=== PATIENT | female | born 1990 ===

== ENCOUNTER → 2022-01-14 14:51 | Outpatient (CLI) | payer OTHER, SELFPAY | PROVIDERS: Referring Provider Internal Medicine; Visit Provider Internal Medicine | DX: Z23 Encounter for immunization (principal) | CPT/HCPCS: 90471; 90686 ==

== ENCOUNTER 2022-02-14 06:10 | Day surgery (SDC) | payer OTHER, SELFPAY ==
[2022-02-14] VITALS (7 sets, daily range): BP systolic 111–133; BP diastolic 65–91; PULSE 73–96; RESP 12–20; TEMP 36.1–37.1; O2SAT 97–100; BMI 41.8
--- NOTE | 2022-02-14 | PATH_ITS ---
[facility] Accession Number: [id number] . 01 Material submitted: . endometrium - ENDOMETRIAL CURETTAGE . 01 Diagnosis: Endometrium, Curettage: Secretory phase endometrium with breakdown. Negative for atypical hyperplasia and malignancy. [facility] 02/18/2022 1106 Local . 01 Electronically signed: . Ibeth Hargrove MD, Pathologist NPI- [id number] . 01 Gross description: . ENDOMETRIAL CURETTAGE: Received in formalin are minute fragments of mucoid and hemorrhagic material measuring 1.2 x 1.2 x 0.4 cm in aggregate. Submitted in toto in 1 cassette. /[facility]IDA 02/16/2022 0029 Local . 01 Pathologist provided ICD-10: N93.9 . 01 CPT . 837005 Specimen Comment: A courtesy copy of this report has been sent to [phone] Performed at: 01 [facility] [address] [place] [address], [place], [place] [id number] MD Jaskaran Erwin MD Phone: [phone]
[2022-02-14 07:02] LABS: COVID19 -Nasal RAPID Negative (Negative)
[2022-02-14] MEDS: LACTATED RINGERS 1,000 ML 100 ML IV (07:10)
--- NOTE | 2022-02-14 08:03 | PM.HP.1 ---
History of Present Illness History of Present Illness Date Patient Seen: 02/14/22 Time Patient Seen: 08:04 Chief complaint: HYSTEROSCOPY D&C Narrative: Patient is a 31-year-old 3 para 2 who presents for a D&C hysteroscopy due to abnormal uterine bleeding and a symmetric endometrial hyperplasia. Patient History Medical History (Updated 02/14/22 @ 06:49 by Harris Ruiz RN) Fibromyalgia Surgical History (Updated 02/14/22 @ 06:50 by Harris Ruiz RN) History of gynecologic surgery Family & Social History Tobacco & Substance use: Smoking Status Never smoker alcohol intake current alcohol intake frequency a few times a month Substance Use Type does not use Meds Home Medications and Allergies Home Medications Medication Instructions Recorded Confirmed Type No Known Home Medications 02/14/22 02/14/22 History Allergies Allergy/AdvReac Type Severity Reaction Status Date / Time No Known Drug Allergies Allergy Verified 02/14/22 06:47 Exam Vital Signs (past 8 hours): - 02/14/22 06:57 Temperature 98.7 F Pulse Rate 96 H Respiratory Rate 12 Blood Pressure 133/91 H Pulse Oximetry 100 Oxygen Delivery Method Room Air Oxygen Delivery Method Room Air Narrative Exam Narrative: HEENT: No thyromegaly, no anterior cervical or supraclavicular lymphadenopathy. Lungs:Clear to auscultation bilaterally, no wheezes. Cardiovascular: Regular rate and rhythm, no murmurs, rubs, or gallops. Abdomen: No scars. No hepatosplenomegaly. No masses palpable. External genitalia: Normal Vagina: Normal Cervix: Normal Bimanual exam: 8 Week size uterus. Mobile. No adnexal masses or tenderness. Extremities: No edema Objective Labs Labs: Laboratory Results - last 24 hr 02/14/22 06:43 SARS-CoV-2 (PCR) Negative Assessment & Plan Assessment & Plan narrative: Assessment: 31-year-old 3 para 2 with abnormal uterine bleeding an asymmetric endometrial hyperplasia Plan: D&C hysteroscopy The risks, benefits, and alternatives to the procedure were explained to the patient. The risks including bleeding, infection, and uterine perforation. She understands these risks and agrees to proceed. A full par Q was held and consent form was signed. COVID-19 COVID-19 status: Negative Result date/Date tested (Pos, Neg/Pending): 02/14/22 Time Spent With Patient Time with patient: less than 30 minutes Critical Care time: I spent a total of [] minutes of critical care time on this patient's care today; this time is exclusive of procedural time.
--- NOTE | 2022-02-14 08:06 | PM.PREOP ---
Pre-operative Note COVID-19 COVID-19 status: Negative Result date/Date tested (Pos, Neg/Pending): 02/14/22 Criteria for continued procedure: Non-surgical alternatives not available or appropriate per current SOC Interval Note History & Physical reviewed/Exam performed by Physician: Yes Changes to H&P: No H&P completed within 30 days and has changed as indicated here:: 02/14/22
--- NOTE | 2022-02-14 08:34 | SUR.OPER ---
Lithotomy on padded OR bed, head on pillow, arms secured on padded arm boards with additional pillows at <90 degrees abduction. Legs secured in padded yellow fins stirrups.
--- NOTE | 2022-02-14 09:05 | PM.GYNOP.1 ---
Operative Date/Time/Diagnoses Date of procedure: 02/14/22 Time of procedure: 09:06 Pre-op diagnosis: Abnormal uterine bleeding Asymmetric endometrial hyperplasia Post-op diagnosis: same Procedure & Clinicians Procedure: Procedures Operation Date: 02/14/22 07:45 Actual Procedure Side Surgeon p Hysteroscopy D&C Richa Edgar MD Indications: Abnormal uterine bleeding Asymmetric endometrial hyperplasia Surgeon: Richa Edgar Anesthesia Type: General (LMA) Operative Notes Findings: 8 week size anteverted uterus Both fallopian tube ostia observed Patchy thickening throughout the endometrial cavity Closure Type: not applicable Specimen(s): endometrial curettings Estimated blood loss (mL): 10 Blood products transfused: none Procedure in detail: After informed consent was obtained, the patient was taken to the operating room where she was placed in the dorsal supine position. After adequate LMA general anesthesia was achieved, she was placed in the dorsal lithotomy position, and prepped and draped in the usual sterile fashion. A time-out was performed. A bivalve speculum was placed into the vagina and the anterior lip of the cervix was grasped with a single-tooth tenaculum. The cervical os was sequentially dilated until the hysteroscope could pass easily into the endometrial cavity. Initial inspection with the hysteroscope revealed both fallopian tube ostia. There were no fibroids or polyps visible. There was patchy thickening throughout the endometrium. The hysteroscope was removed. Sharp curettage was performed yielding a large amount of endometrial curettings. The instruments were removed from the uterus. The single-tooth tenaculum was removed from the anterior lip of the cervix. The bivalve speculum was removed from the vagina. Sponge, lap, and instrument counts were correct x2. The patient tolerated the procedure well, and was taken to PACU in stable condition. Complications: none Post-operative Condition: stable Plan for aftercare: Home after recovery
[2022-02-14] MEDS: KETOROLAC 30 MG/ML VIAL IV (09:07)
== END 2022-02-14 09:31 | disposition home or self-care (01) ==
PROVIDERS: PCP Family Medicine; Referring Provider Obstetrics & Gynecology; Visit Provider Obstetrics & Gynecology
PROC: 0UDB8ZZ Extraction of Endometrium, Via Natural or Artificial Opening Endoscopic (ICD-10-PCS; CPT 58558; principal; 2022-02-14 07:45)
DX: N93.9 Abnormal uterine and vaginal bleeding, unspecified (principal); Z20.822 Contact with and (suspected) exposure to COVID-19; N85.00 Endometrial hyperplasia, unspecified
CPT/HCPCS: 58558; 81025; 87635; C9803; J1100; J1885; J2405; J2704; J3010

== ENCOUNTER 2022-09-23 08:35 | Emergency (ER) | payer OTHER, SELFPAY ==
[2022-09-23] VITALS (10 sets, daily range): BP systolic 118–145; BP diastolic 60–84; PULSE 68–119; RESP 15–22; TEMP 36.7; O2SAT 97–99; BMI 42.5
--- NOTE | 2022-09-23 08:38 | DI.RAD.S_ITS ---
PROCEDURE: XR CHEST 1V INDICATIONS: chest pain TECHNIQUE: One view of the chest was acquired. COMPARISON: None. FINDINGS: Surgical changes and devices: None. Lungs and pleura: Lungs are clear. No pleural effusions or pneumothorax. Mediastinum: Mediastinal contours appear normal. Heart size is normal. Bones and chest wall: No suspicious bony lesions. Overlying soft tissues appear unremarkable. IMPRESSION: No acute pulmonary process. Dictated by: Melissa Thomas M.D. on 09/23/2022 at 9:11 Approved by: Melissa Thomas M.D. on 09/23/2022 at 9:11
--- NOTE | 2022-09-23 08:48 | ED_ITS ---
HPI - Chest Pain General Chief Complaint: Chest Pain Stated Complaint: hear heart in ear/chest discomfort/dizzy Time Seen by Provider: 09/23/22 08:48 Source: patient, RN notes reviewed and old records reviewed Mode of arrival: Ambulatory Limitations: no limitations History of Present Illness HPI narrative: This is a 32-year-old female with history of intermittent nicotine use, patient states last night she started hearing wash in her left ear with her heart rate she is felt a dull squeeze in her chest which has been constant but waxing and waning in intensity. Patient states nothing seems to make it worse something nothing seems to make it better she denies any radiation. Denies any similar episodes in the past. She has felt a little lightheaded but no syncope. She felt a little nauseated last night, she did not have any vomiting. She did have some diarrhea, no black or bright red blood in her stool. No dysuria urgency or frequency. No new swelling in extremities. No fevers chills cold cough or congestion. Denies any past medical issues. No prior surgeries. No known drug allergies. She uses nicotine couple days ago does use intermittently. She would 1 beer last night she states she typically has a drink once monthly. No marijuana recreational drugs. No long distance travel, no known cardiac, pulmonary or embolic history. She states grandparents from congestive heart failure, dad has hypertension diabetes. Siblings do not have any known medical issues. She denies any long distance travel or other high- risk embolic history. Patient does note that she has been told her heart rate runs a little fast in the past when noted she is got a heart rate around 105 at times in the room. Related Data Home Medications Medication Instructions Recorded Confirmed No Known Home Medications 02/14/22 02/14/22 Allergies Allergy/AdvReac Type Severity Reaction Status Date / Time No Known Drug Allergies Allergy Verified 09/23/22 08:48 Review of Systems Review of Systems ROS Unobtainable: All systems reviewed & are unremarkable except as noted in HPI and below Patient History Medical History Fibromyalgia Surgical History History of gynecologic surgery Social History Smoking Status: Never smoker alcohol intake: current Smoking Status: Never smoker alcohol intake frequency: a few times a month Substance Use Type: does not use Exam Narrative Exam Narrative: GENERAL: Alert and oriented x three, female in mild distress. HEENT: Head normocephalic, atraumatic, EOMI, pupils reactive, face symmetric, moist mucous membranes NECK: Supple, full range of motion CARDIOVASCULAR: Regular rate and rhythm without murmurs, rubs or gallops. No JVD. No swelling bilateral lower extremities. RESPIRATORY: Breath sounds equal bilaterally, no wheezes rales or rhonchi. No tachypnea or accessory muscle use. Speaks in full sentences. ABDOMEN: Soft, nontender. Normoactive bowel sounds all 4 quadrants. No guarding or rebound, rigidity, no mass : No CVA tenderness EXTREMITIES: Normal range of motion, no clubbing or edema. 2+ pulses bilateral upper extremities. Neurovascularly intact NEUROLOGICAL: Cranial nerves II through XII grossly intact. Moving all extremit ies SKIN: Warm, dry, no petechiae, no rashes or lesions. Initial Vital Signs Initial Vital Signs: Vital Signs Pulse Rate 119 H 09/23/22 08:40 Blood Pressure 145/84 H 09/23/22 08:40 Pulse Oximetry 98 09/23/22 08:40 Scores PERC Score Age greater than or equal to 50 years: No Heart rate greater than or equal to 100 bpm: Yes Room Air O2 Sat less than 95%: No Unilateral leg swelling: No Recent trauma or surgery: No Hemoptysis: No Prior PE or DVT: No Hormone Use: No Total PERC Score: 1 Course Orders Ordered: ED Orders 09/23/22 11:10 Trop I [Troponin I] Stat Discontinued Medications Sodium Chloride (Normal Saline 0.9%) 1,000 mls @ 1,000 mls/hr IV BOLUS ONE Stop: 09/23/22 10:01 Last Infusion: 09/23/22 10:23 Dose: 0 mls/hr Documented By: Admin: 09/23/22 09:22 Dose: 1,000 mls/hr Documented By: CTS Vital Signs Vital signs: Vital Signs - 8 hr 09/23/22 11:00 09/23/22 11:30 09/23/22 11:30 Pulse Rate 86 84 Respiratory Rate 19 15 Blood Pressure 137/80 Pulse Oximetry 99 98 MDM - Chest Pain Lab Data 09/23/22 09:00 09/23/22 09:00 Labs: Lab Results 09/23/22 09/23/22 09/23/22 Range/Units 09:00 09:00 09:00 WBC 8.0 (4.5-11.0) X10^3/uL RBC 4.64 (4.0-5.2) X10^6/uL Hgb 13.1 (12.0-16.0) g/dL Hct 39.0 (36-46) % MCV 83.9 (80-100) fL MCH 28.1 (26-34) PG MCHC 33.5 (30-36) % RDW 14.2 (11.6-14.8) % Plt Count 212 (150-400) X10^3/uL Neut % (Auto) 59.7 (50-75) % Lymph % (Auto) 32.4 (25-40) % [place] % (Auto) 5.2 (3-14) % Eos % (Auto) 1.7 L (2-4) % Baso % (Auto) 1.0 (0-2) % Neut # (Auto) 4800 (0429-7301) /uL Lymph # (Auto) 2600 (9490-5304) /uL [place] # (Auto) 400 (0-900) /uL Eos # (Auto) 100 (0-450) /uL Baso # (Auto) 100 (0-100) /uL PT 12.5 (10.1-12.7) SECONDS INR 1.1 (0.9-1.3) APTT 33 (26-36) SECONDS D-Dimer (<500) ng/ml Sodium 138 (137-145) mmol/L Potassium 4.1 (3.4-5.1) mmol/L Chloride 104 (98-107) mmol/L Carbon Dioxide 26 (22-32) mmol/L BUN 12 (7-17) mg/dL Creatinine 0.73 (0.52-1.04) mg/dL Estimated GFR > 60 (>60) mL/min BUN/Creatinine Ratio 16.4 (6-22) Glucose 116 H (70-100) mg/dL Calcium 9.0 (8.4-10.2) mg/dL Magnesium 2.0 (1.6-2.3) mg/dL Total Bilirubin 0.8 (0.2-1.3) mg/dL AST 25 (14-36) IU/L ALT 29 (<35) IU/L Alkaline Phosphatase 66 (38-126) U/L Total Creatine Kinase 98 (30-135) U/L CK-MB (CK-2) TNP CK-MB (CK-2) Rel Index TNP Troponin I < 0.012 (0.01-0.034) ng/mL NT-Pro-B Natriuret Pep (<125) pg/mL Total Protein 7.4 (6.3-8.2) g/dL Albumin 4.2 (3.5-5.0) g/dL Globulin 3.2 (1.7-4.1) g/dL Albumin/Globulin Ratio 1.3 (1.0-2.8) Lipase 41 (23-300) U/L 09/23/22 09/23/22 09/23/22 Range/Units 09:00 09:00 11:10 WBC (4.5-11.0) X10^3/uL RBC (4.0-5.2) X10^6/uL Hgb (12.0-16.0) g/dL Hct (36-46) % MCV (80-100) fL MCH (26-34) PG MCHC (30-36) % RDW (11.6-14.8) % Plt Count (150-400) X10^3/uL Neut % (Auto) (50-75) % Lymph % (Auto) (25-40) % [place] % (Auto) (3-14) % Eos % (Auto) (2-4) % Baso % (Auto) (0-2) % Neut # (Auto) (6474-3872) /uL Lymph # (Auto) (0852-6324) /uL [place] # (Auto) (0-900) /uL Eos # (Auto) (0-450) /uL Baso # (Auto) (0-100) /uL PT (10.1-12.7) SECONDS INR (0.9-1.3) APTT (26-36) SECONDS D-Dimer 443 (<500) ng/ml Sodium (137-145) mmol/L Potassium (3.4-5.1) mmol/L Chloride (98-107) mmol/L Carbon Dioxide (22-32) mmol/L BUN (7-17) mg/dL Creatinine (0.52-1.04) mg/dL Estimated GFR (>60) mL/min BUN/Creatinine Ratio (6-22) Glucose (70-100) mg/dL Calcium (8.4-10.2) mg/dL Magnesium (1.6-2.3) mg/dL Total Bilirubin (0.2-1.3) mg/dL AST (14-36) IU/L ALT (<35) IU/L Alkaline Phosphatase (38-126) U/L Total Creatine Kinase (30-135) U/L CK-MB (CK-2) CK-MB (CK-2) Rel Index Troponin I < 0.012 (0.01-0.034) ng/mL NT-Pro-B Natriuret Pep 36 (<125) pg/mL Total Protein (6.3-8.2) g/dL Albumin (3.5-5.0) g/dL Globulin (1.7-4.1) g/dL Albumin/Globulin Ratio (1.0-2.8) Lipase (23-300) U/L Imaging Data Chest x-ray: Radiologist's Impression: Close Chest X-Ray (Signed) Melissa Thomas - 09/23/22 Outside DI 01/11/22 Launch?[place] [address] XRay Report Signed Patient: Fara Perdue MR#: [id number] : 1990 Acct:[id number] Age/Sex: 32 / F Date of Service: 09/23/22 Loc: ED Accession Number: [id number] ?? Procedure: XR chest 1V Ordering Provider: Marsha Jiménez D.O. PROCEDURE:? XR CHEST 1V ? INDICATIONS:? chest pain ? TECHNIQUE:? One view of the chest was acquired.? ? COMPARISON:? None. ? FINDINGS:? ? Surgical changes and devices:? None.? ? Lungs and pleura:? Lungs are clear.? No pleural effusions or pneumothorax.? ? Mediastinum:? Mediastinal contours appear normal.? Heart size is normal.? ? Bones and chest wall:? No suspicious bony lesions.? Overlying soft tissues appear unremarkable.? ? IMPRESSION:? No acute pulmonary process. ? ? Dictated by: Melissa Thomas M.D. on 09/23/2022 at 9:11 ? ? Approved by: Melissa Thomas M.D. on 09/23/2022 at 9:11?? ECG Data Attestation: I personally reviewed and interpreted this ECG as follows: Prior ECG tracings: not available for review Interpretation: Sinus s tachycardia rate of 105 FL 116 QRS is 72 and QTC 433. No acute ST elevation or depression is appreciated. Patient has Q3 T3 not appreciated another leads Sinus rhythm rate of 75 FL 120 QRS 80 QTC 426. No acute changes from prior today. No dynamic changes MDM Narrative Medical decision making narrative: 32-year-old female cardiac workup so far is negative with troponin, BNP, dimer is negative, renal function, electrolytes CBC do not show acute changes. Chest x-ray shows no acute change, EKG does not show clear changes other than sinus tachycardia. Patient's heart rate was improving even before fluids after a L she is running in the 70s. Discussed with patient plan for repeat troponin EKG at the 2 hour camilla if negative unlikely for cardiac cause we did discuss the whooshing in her ear there is no pain radiating up to her neck or head. We discussed further imaging with angiography despite D-dimer being negative discussed that it is not a perfect test. Patient at this time elects to hold off after discussing risks versus benefit. Repeat troponin and EKG are negative which is reassuring overall patient's chest pain had never resolved in 24 hours. Discussed patient plan for follow-up. Eb villalobos notes she is supposed to fly to [facility] on Monday. Discussed recommend follow-up for then particularly if symptoms are persisting. Discharge Plan Departure Patient Disposition: Home Clinical Impression: Atypical chest pain Instructions: DI for Atypical Chest Pain Activity Restrictions/Additional Instructions: Please follow-up for recheck if your symptoms are persisting. Your workup today does not show any clear changes. Discussed with your physician about whether or not to have additional workup. Please return for new or worsening symptoms increasing chest pain, shortness of breath, lightheadedness or passing out, severe headaches or neck pain, diaphoresis or sweatiness, new swelling in your extremities or other new or concerning changes. Prescriptions: No Action No Known Home Medications Referrals: Stefany Ro MD [Primary Care Provider] - Stand Alone Forms: Patient Portal/API
[2022-09-23 09:13] LABS: Add Manual Diff / Slide Review NO; Basophils Absolute Auto 100 /uL (0-100); Eosinophils Absolute Auto 100 /uL (0-450); Eosinophils Percent Auto 1.7 % (2-4); Hemoglobin 13.1 g/dL (12.0-16.0); Lymphocytes Absolute Auto 2600 /uL (1100-4500); Lymphocytes Percent Auto 32.4 % (25-40); Mean Corpuscular HGB Conc 33.5 % (30-36); Mean Corpuscular Hemoglobin 28.1 PG (26-34); Mean Corpuscular Volume 83.9 fL (80-100); Monocytes Absolute Auto 400 /uL (0-900); Monocytes Percent Auto 5.2 % (3-14); Neutrophils Absolute Auto 4800 /uL (1500-7000); Neutrophils Percent Auto 59.7 % (50-75); Platelet Count 212 X10^3/uL (150-400); Red Blood Cell Count 4.64 X10^6/uL (4.0-5.2); Red Cell Distribution Width 14.2 % (11.6-14.8)
[2022-09-23] MEDS: SODIUM CHLORIDE 0.9% 1,000 ML 1000 ML IV (09:22)
[2022-09-23 09:26] LABS: Alanine Aminotransferase 29 IU/L (<35); Albumin 4.2 g/dL (3.5-5.0); Albumin Globulin Ratio 1.3 (1.0-2.8); Alkaline Phosphatase 66 U/L (38-126); Aspartate Aminotransferase 25 IU/L (14-36); BUN Creatinine Ratio 16.4 (6-22); Bilirubin Total 0.8 mg/dL (0.2-1.3); Blood Urea Nitrogen 12 mg/dL (7-17); Carbon Dioxide 26 mmol/L (22-32); Chloride 104 mmol/L (98-107); Creatine Kinase 98 U/L (30-135); Estimated Glomerular Filt Rate > 60 mL/min (>60); Globulin 3.2 g/dL (1.7-4.1); Glucose 116 mg/dL (70-100); HEMOLYSIS < 15 (0-50); Lipase 41 U/L (23-300); Potassium 4.1 mmol/L (3.4-5.1); Sodium 138 mmol/L (137-145); Total Protein 7.4 g/dL (6.3-8.2)
[2022-09-23 09:31] LABS: INR 1.1 (0.9-1.3); Prothrombin Time 12.5 SECONDS (10.1-12.7)
[2022-09-23 09:33] LABS: PTT Partial Thromboplastin Tim 33 SECONDS (26-36)
[2022-09-23 09:35] LABS: NT-proBNP (BNP-Adult 18+) 36 pg/mL (<125)
[2022-09-23 09:37] LABS: Troponin I < 0.012 ng/mL (0.01-0.034)
[2022-09-23 09:43] LABS: D Dimer 443 ng/ml (<500)
[2022-09-23 11:42] LABS: Troponin I < 0.012 ng/mL (0.01-0.034)
== END 2022-09-23 11:58 | disposition home or self-care (01) ==
PROVIDERS: Emergency Provider Emergency Medicine; PCP Family Medicine
DX: R07.89 Other chest pain (principal); R11.0 Nausea
CPT/HCPCS: 36415; 71045; 80053; 82550; 83690; 83735; 83880; 84484; 85025; 85379; 85610; 85730; 93005; 96360; 99284

== ENCOUNTER → 2023-01-13 08:42 | Outpatient (CLI) | payer OTHER, SELFPAY | PROVIDERS: PCP Family Medicine; Referring Provider Family Medicine; Visit Provider Family Medicine | DX: Z23 Encounter for immunization (principal) | CPT/HCPCS: 90471; 90686 ==

== ENCOUNTER 2023-02-23 10:43 | Emergency (ER) | payer OTHER, SELFPAY ==
[2023-02-23] VITALS (10 sets, daily range): BP systolic 116–138; BP diastolic 66–80; PULSE 86–108; RESP 18–23; TEMP 36.9; O2SAT 96–99; BMI 40.7
--- NOTE | 2023-02-23 10:46 | DI.RAD.S_ITS ---
PROCEDURE: XR CHEST 1V INDICATIONS: chest pain TECHNIQUE: One view of the chest was acquired. COMPARISON: [facility], CR, XR CHEST 1V, 09/23/2022, 8:46. FINDINGS: Surgical changes and devices: None. Lungs and pleura: Lungs are clear. No pleural effusions or pneumothorax. Mediastinum: Mediastinal contours appear normal. Heart size is normal. Bones and chest wall: No suspicious bony lesions. Overlying soft tissues appear unremarkable. IMPRESSION: No acute cardiopulmonary pathology. Dictated by: Lorne Su M.D. on 02/23/2023 at 11:45 Approved by: Lorne Su M.D. on 02/23/2023 at 11:46
--- NOTE | 2023-02-23 10:55 | ED.CHESTPAIN ---
HPI - Chest Pain General Chief Complaint: Chest Pain Stated Complaint: chest pain swelling lower ext Time Seen by Provider: 02/23/23 10:54 Source: patient, RN notes reviewed and old records reviewed Mode of arrival: Ambulatory Limitations: no limitations History of Present Illness HPI narrative: 32-year-old female with history of colon polyp, presents with complaint of some substernal chest pressure for the past 3 weeks she states been fairly constant but occasionally will have a shooting pain. She states it has been substernal without radiation. She denies any palpitations but states her Apple watch was reading is fast. Patient states she is felt a little short of breath but states she is been very congested upper respiratory ruiz. She is had a recent upper respiratory infection has been about a week she states she is improving. She denies any nausea or vomiting. No diaphoresis. She states she noticed that her shoes seemed a little bit tight today when she went to put them on and she was concerned about some edema. She is not had this kind of problem in the past with the edema. She denies abdominal back or flank pain. No passing out. No issues such as diarrhea or constipation with normal bowel movements. No dysuria urgency or frequency. States has not had similar symptoms in the past. She does have a visit for chest pain tachycardia back in September of 2022. Patient does note she had a colonoscopy on February 01 secondary to family history her mom had colon cancer at age 30 as well as an uncle. They found a polyp which was removed but no other complications. She states no other medical issues she is not on estrogen or any daily medications. No prior surgeries. No known drug allergies. Remote history of tobacco use. Alcohol once monthly, no recreational drugs or illicit. She follows with primary care at the [facility]. Related Data Home Medications Medication Instructions Recorded Confirmed No Known Home Medications 02/14/22 02/14/22 Allergies Allergy/AdvReac Type Severity Reaction Status Date / Time No Known Drug Allergies Allergy Verified 09/23/22 08:48 Review of Systems Review of Systems ROS Unobtainable: All systems reviewed & are unremarkable except as noted in HPI and below Patient History Medical History Fibromyalgia Surgical History History of gynecologic surgery Social History Smoking Status: Never smoker alcohol intake: current Smoking Status: Never smoker alcohol intake frequency: a few times a month Substance Use Type: does not use Exam Narrative Exam Narrative: GENERAL: Alert and oriented x three, well-appearing female in mild distress. BMI of 40. HEENT: Head normocephalic, atraumatic, EOMI, pupils reactive, patient does have nasal congestion. Face symmetric, moist mucous membranes NECK: Supple, full range of motion CARDIOVASCULAR: Mild tachycardia but regular rate and rhythm without murmurs, rubs or gallops. No JVD. No edema appreciated bilateral lower extremities. RESPIRATORY: Breath sounds equal bilaterally, no wheezes rales or rhonchi. No tachypnea, no accessory muscle use. ABDOMEN: Soft, nontender. Normoactive bowel sounds all 4 quadrants. No guarding or rebound, rigidity, no mass : No CVA tenderness EXTREMITIES: Normal range of motion, no clubbing or edema. Neurovascularly intact NEUROLOGICAL: Cranial nerves II through XII grossly intact. Moving all extremities SKIN: Warm, dry, no petechiae, no rashes or lesions. Initial Vital Signs Initial Vital Signs: Vital Signs Pulse Rate 108 H 02/23/23 10:51 Respiratory Rate 19 02/23/23 10:51 Pulse Oximetry 97 02/23/23 10:51 Scores HEART Score Heart Score history: Slightly Suspicious Heart Score EKG: Normal Heart Score Age: < 45 years old Heart Score risk factors: No known risk factors PERC Score Age greater than or equal to 50 years: No Heart rate greater than or equal to 100 bpm: Yes Room Air O2 Sat less than 95%: No Unilateral leg swelling: No Recent trauma or surgery: No Hemoptysis: No Prior PE or DVT: No Hormone Use: No Total PERC Score: 1 Course Orders Ordered: ED Orders 02/23/23 10:46 XR chest 1V Stat 02/23/23 10:53 EKG-12 Lead Stat 02/23/23 10:59 Complete Blood Count AUTO DIFF Stat Comprehensive Metabolic Panel Stat D Dimer Stat Lipase Stat Magnesium Stat NT-proBNP (BNP-Adult 18+) Stat PTT Partial Thromboplastin Blayne Stat Test Serum,Qual Stat Prothrombin Time INR Stat Troponin & CK Cardiac Panel Stat 02/23/23 11:20 Covid-19 + FLU A/B + RSV - PCR Stat Discontinued Medications Aspirin (Aspirin 81 Mg Chew Tab) 324 mg PO NOW ONE Stop: 02/23/23 10:47 Last Admin: 02/23/23 11:27 Dose: Not Given Documented By: NORMA Sodium Chloride (Normal Saline 0.9%) 1,000 mls @ 1,000 mls/hr IV BOLUS ONE Stop: 02/23/23 12:06 Last Infusion: 02/23/23 12:13 Dose: Infused Documented By: Admin: 02/23/23 11:15 Dose: 1,000 mls/hr Documented By: GINGER Vital Signs Vital signs: Vital Signs - 8 hr 02/23/23 10:51 02/23/23 10:56 02/23/23 11:00 Temperature 98.5 F Pulse Rate 108 H 104 H Respiratory Rate 19 18 Blood Pressure 138/80 132/79 Pulse Oximetry 97 98 Oxygen Delivery Method Room Air 02/23/23 11:00 02/23/23 11:30 02/23/23 11:30 Temperature Pulse Rate 103 H 95 H Respiratory Rate 20 23 Blood Pressure 125/66 Pulse Oximetry 97 96 Oxygen Delivery Method 02/23/23 12:00 02/23/23 12:00 02/23/23 12:30 Temperature Pulse Rate 91 H 87 Respiratory Rate 18 22 Blood Pressure 126/75 Pulse Oximetry 99 98 Oxygen Delivery Method 02/23/23 13:00 02/23/23 13:30 02/23/23 13:49 Temperature Pulse Rate 87 86 Respiratory Rate 18 20 Blood Pressure 120/72 Pulse Oximetry 96 98 Oxygen Delivery Method Room Air 02/23/23 13:49 02/23/23 14:04 Temperature Pulse Rate 99 H 95 H Respiratory Rate 18 20 Blood Pressure 116/66 Pulse Oximetry 99 98 Oxygen Delivery Method Room Air MDM - Chest Pain Lab Data 02/23/23 10:59 02/23/23 10:59 Labs: Lab Results 02/23/23 02/23/23 Range/Units 10:59 11:20 WBC 11.3 H (4.5-11.0) X10^3/uL RBC 4.69 (4.0-5.2) X10^6/uL Hgb 12.9 (12.0-16.0) g/dL Hct 38.6 (36-46) % MCV 82.4 (80-100) fL MCH 27.4 (26-34) PG MCHC 33.3 (30-36) % RDW 14.1 (11.6-14.8) % Plt Count 213 (150-400) X10^3/uL Neut % (Auto) 63.0 (50-75) % Lymph % (Auto) 29.4 (25-40) % [place] % (Auto) 5.5 (3-14) % Eos % (Auto) 1.4 L (2-4) % Baso % (Auto) 0.7 (0-2) % Neut # (Auto) 7100 H (5156-3004) /uL Lymph # (Auto) 3300 (6792-6335) /uL [place] # (Auto) 600 (0-900) /uL Eos # (Auto) 200 (0-450) /uL Baso # (Auto) 100 (0-100) /uL PT 12.4 (9.4-12.5) SECONDS INR 1.1 (0.9-1.3) APTT 32 (25.1-36.5) SECONDS D-Dimer 423 (<500) ng/ml Sodium 137 (137-145) mmol/L Potassium 4.0 (3.4-5.1) mmol/L Chloride 105 (98-107) mmol/L Carbon Dioxide 26 (22-32) mmol/L BUN 10 (7-17) mg/dL Creatinine 0.64 (0.52-1.04) mg/dL Estimated GFR > 60 (>60) mL/min BUN/Creatinine Ratio 15.6 (6-22) Glucose 114 H (70-100) mg/dL Calcium 9.5 (8.4-10.2) mg/dL Magnesium 2.0 (1.6-2.3) mg/dL Total Bilirubin 0.9 (0.2-1.3) mg/dL AST 24 (14-36) IU/L ALT 27 (<35) IU/L Alkaline Phosphatase 63 (38-126) U/L Total Creatine Kinase 82 (30-135) U/L Troponin I < 0.012 (0.01-0.034) ng/mL NT-Pro-B Natriuret Pep 58 (<125) pg/mL Total Protein 7.8 (6.3-8.2) g/dL Albumin 4.4 (3.5-5.0) g/dL Globulin 3.4 (1.7-4.1) g/dL Albumin/Globulin Ratio 1.3 (1.0-2.8) Lipase 54 (23-300) U/L Serum , Qual Negative (Negative) SARS-CoV-2 (PCR) Negative (Negative) Influenza A (RT-PCR) Flu a negative (NEGATIVE) Influenza B (RT-PCR) Flu b negative (NEGATIVE) RSV (PCR) Negative (Negative) Imaging Data Chest x-ray: Radiologist's Impression: [address] [address] XRay Report Signed Patient: Fara Perdue MR#: [id number] : 1990 Acct:[id number] Age/Sex: 32 / F Date of Service: 02/23/23 Loc: ED Accession Number: [id number] Procedure: XR chest 1V Ordering Provider: Marsha Jiménez D.O. PROCEDURE: XR CHEST 1V INDICATIONS: chest pain TECHNIQUE: One view of the chest was acquired. COMPARISON: [facility], , XR CHEST 1V, 09/23/2022, 8:46. FINDINGS: Surgical changes and devices: None. Lungs and pleura: Lungs are clear. No pleural effusions or pneumothorax. Mediastinum: Mediastinal contours appear normal. Heart size is normal. Bones and chest wall: No suspicious bony lesions. Overlying soft tissues appear unremarkable. IMPRESSION: No acute cardiopulmonary pathology. Dictated by: Lorne Su M.D. on 02/23/2023 at 11:45 Approved by: Lorne Su M.D. on 02/23/2023 at 11:46 ECG Data Attestation: I personally reviewed and interpreted this ECG as follows: Interpretation: Sinus tachycardia rate of 106 ID 118 QRS is 74 QTC 446. Patient has prior from 09/23/[address] elevation depression. Some nonspecific change. MDM Narrative Medical decision making narrative: 32-year-old female with history of colon polyp with no reported medical issues presents with complaint of some mild chest pressure noticed some edema in her lower extremities and then her heart rate has been elevated. She states her Apple watch his right up to 120 resting intermittently. She states she has had a recent upper respiratory infection she is on the tail end of this she is still congested. She was here once before for similar symptoms without URI in September of 2022. No reported cardiac history, no estrogen use or high-risk factors for pulmonary emboli. Patient's exam overall is reassuring no obvious signs of fluid overload, she is slightly tachycardic on examination but in no respiratory distress. Plan for labs CBC, CMP, troponin, dimer secondary to tachycardia, , she would mild leukocytosis at 11.3 normal hemoglobin, platelets, coags negative D-dimer is negative, glucose 114 otherwise negative renal function electrolytes LFTs, troponin and BNP with a negative . EKG shows no acute change today. She does have sinus tachycardia has not on prior visit as well. No significant dynamic changes. Chest x-ray shows no acute change. COVID/influenza/RSV swab is negative. Patient was given 1L of fluid on recheck tachycardia is resolved. Patient well-appearing with negative workup overall. Patient prior does have a recent upper respiratory infection no signs of myocarditis, acute coronary syndrome, pulmonary emboli, infection felt appropriate for discharge home. Discharge Plan Departure Patient Disposition: Home Clinical Impression: Chest pain Instructions: DI for Chest Pain Activity Restrictions/Additional Instructions: Follow-up with your physician for recheck. If you have persistent symptoms they may perform additional workup. Please return for new or worsening symptoms increasing or new chest pain, shortness of breath, lightheadedness, passing out, diaphoresis or sweatiness, increasing swelling of your extremities, persistent vomiting or other new or concerning changes. Prescriptions: No Action No Known Home Medications Referrals: ProviderAlberto [Primary Care Provider] - Stand Alone Forms: Patient Portal/API
[2023-02-23 11:10] LABS: Add Manual Diff / Slide Review NO; Basophils Absolute Auto 100 /uL (0-100); Basophils Percent Auto 0.7 % (0-2); Eosinophils Absolute Auto 200 /uL (0-450); Eosinophils Percent Auto 1.4 % (2-4); Hematocrit 38.6 % (36-46); Hemoglobin 12.9 g/dL (12.0-16.0); Lymphocytes Absolute Auto 3300 /uL (1100-4500); Lymphocytes Percent Auto 29.4 % (25-40); Mean Corpuscular HGB Conc 33.3 % (30-36); Mean Corpuscular Hemoglobin 27.4 PG (26-34); Mean Corpuscular Volume 82.4 fL (80-100); Monocytes Absolute Auto 600 /uL (0-900); Monocytes Percent Auto 5.5 % (3-14); Neutrophils Absolute Auto 7100 /uL (1500-7000); Platelet Count 213 X10^3/uL (150-400); Red Blood Cell Count 4.69 X10^6/uL (4.0-5.2); Red Cell Distribution Width 14.1 % (11.6-14.8); White Blood Cell Count 11.3 X10^3/uL (4.5-11.0)
[2023-02-23] MEDS: SODIUM CHLORIDE 0.9% 1,000 ML 1000 ML IV (11:15)
[2023-02-23 11:17] LABS: INR 1.1 (0.9-1.3); Prothrombin Time 12.4 SECONDS (9.4-12.5)
[2023-02-23 11:20] LABS: PTT Partial Thromboplastin Tim 32 SECONDS (25.1-36.5)
[2023-02-23 11:25] LABS: Alanine Aminotransferase 27 IU/L (<35); Albumin 4.4 g/dL (3.5-5.0); Albumin Globulin Ratio 1.3 (1.0-2.8); Alkaline Phosphatase 63 U/L (38-126); Aspartate Aminotransferase 24 IU/L (14-36); BUN Creatinine Ratio 15.6 (6-22); Bilirubin Total 0.9 mg/dL (0.2-1.3); Blood Urea Nitrogen 10 mg/dL (7-17); Calcium 9.5 mg/dL (8.4-10.2); Carbon Dioxide 26 mmol/L (22-32); Chloride 105 mmol/L (98-107); Creatine Kinase 82 U/L (30-135); Estimated Glomerular Filt Rate > 60 mL/min (>60); Globulin 3.4 g/dL (1.7-4.1); Glucose 114 mg/dL (70-100); HEMOLYSIS < 15 (0-50); Lipase 54 U/L (23-300); Sodium 137 mmol/L (137-145); Total Protein 7.8 g/dL (6.3-8.2)
[2023-02-23 11:26] LABS: Pregnancy Test Serum,Qual Negative (Negative)
[2023-02-23 11:28] LABS: D Dimer 423 ng/ml (<500)
[2023-02-23 11:36] LABS: NT-proBNP (BNP-Adult 18+) 58 pg/mL (<125); Troponin I < 0.012 ng/mL (0.01-0.034)
[2023-02-23 12:48] LABS: COVID-19 CEPHEID 4-PLEX PCR Negative (Negative); Influenza A - CEPHEID Flu A NEGATIVE (NEGATIVE); Influenza B - CEPHEID Flu B NEGATIVE (NEGATIVE); Respiratory Syncytial Virus Negative (Negative)
== END 2023-02-23 14:14 | disposition home or self-care (01) ==
PROVIDERS: Emergency Provider Emergency Medicine
DX: R07.9 Chest pain, unspecified (principal); R00.0 Tachycardia, unspecified
CPT/HCPCS: 0241U; 36415; 71045; 80053; 82550; 83690; 83735; 83880; 84484; 84703; 85025; 85379; 85610; 85730; 93005; 93010; 99284

== ENCOUNTER → 2023-03-17 11:58 | Outpatient (CLI) | payer OTHER, SELFPAY ==
[2023-03-22 15:57] LABS: QuantiFERON Mitogen Value >10.00 IU/mL (.); QuantiFERON Nil Value 0.03 IU/mL (.); QuantiFERON TB Gold Plus Negative (Negative); QuantiFERON TB1 Ag Value 0.15 IU/mL (.); QuantiFERON TB2 Ag Value 0.11 IU/mL (.)
== END ==
PROVIDERS: Referring Provider Student in an Organized Health Care Education/Training Program; Visit Provider Student in an Organized Health Care Education/Training Program
DX: Z11.1 Encounter for screening for respiratory tuberculosis (principal)
CPT/HCPCS: 36415; 86480

== ENCOUNTER → 2023-05-05 12:02 | Outpatient (CLI) | payer OTHER, SELFPAY ==
--- NOTE | 2023-05-05 12:05 | DI.MRI.S_ITS ---
BREAST MRI OF BOTH BREASTS: 05/05/2023 CLINICAL: Severe Left breast pain. PROCEDURE: MR BREAST BI WO/W CON INDICATIONS: severe Left breast pain TECHNIQUE: The patient was placed prone in a dedicated breast imaging coil. Precontrast axial STIR and 3D FLASH without fat saturation sequences were obtained. Both before and after bolus injection of contrast, sequential 1-minute axial 3D FLASH with fat saturation sequences for 3 time points, with subtraction images and maximum intensity projections (MIP's) generated. Delayed sagittal FLASH images with fat saturation were also obtained. Computer-aided detection, including computer algorithm analysis of MRI image data for lesion detection and characterization, pharmacokinetic analysis, with further physician review for interpretation, was performed. COMPARISON: None. FINDINGS: Image quality: Diagnostic. There is scattered amount of fibroglandular tissue. There is mild and symmetric background parenchymal enhancement. Right breast: There is no suspicious enhancement or lymphadenopathy. Left breast: There is no suspicious enhancement or lymphadenopathy. IMPRESSION: NEGATIVE No MRI evidence of malignancy. Recommend clinical follow-up for left breast pain. If left breast pain is focal, recommend further evaluation with diagnostic mammogram and ultrasound if not already performed. This exam was interpreted at Station ID: [id number]. Electronically Signed By: Claudia Mims M.D., PH.D eb/:05/06/2023 02:30:08 copy to: Herlinda Grimes letter sent: Clinical Evaluation ACR BI-RADS Category 1: Negative [id number]
== END ==
PROVIDERS: Referring Provider Obstetrics & Gynecology; Visit Provider Obstetrics & Gynecology
DX: N64.4 Mastodynia (principal)
CPT/HCPCS: 77049; A9579

== ENCOUNTER → 2023-07-06 09:23 | Outpatient (CLI) | payer OTHER, SELFPAY ==
[2023-07-06 09:41] LABS: Add Manual Diff / Slide Review NO; Basophils Absolute Auto 100 /uL (0-100); Eosinophils Absolute Auto 200 /uL (0-450); Hemoglobin 13.2 g/dL (12.0-16.0); Lymphocytes Absolute Auto 2800 /uL (1100-4500); Lymphocytes Percent Auto 33.6 % (25-40); Mean Corpuscular Hemoglobin 27.6 PG (26-34); Mean Corpuscular Volume 83.5 fL (80-100); Monocytes Absolute Auto 400 /uL (0-900); Monocytes Percent Auto 5.1 % (3-14); Neutrophils Absolute Auto 4800 /uL (1500-7000); Neutrophils Percent Auto 58.3 % (50-75); Platelet Count 217 X10^3/uL (150-400); Red Blood Cell Count 4.79 X10^6/uL (4.0-5.2); Red Cell Distribution Width 14.1 % (11.6-14.8); White Blood Cell Count 8.2 X10^3/uL (4.5-11.0)
[2023-07-06 10:25] LABS: Alanine Aminotransferase 25 IU/L (<35); Albumin 4.1 g/dL (3.5-5.0); Albumin Globulin Ratio 1.3 (1.0-2.8); Alkaline Phosphatase 71 U/L (38-126); Aspartate Aminotransferase 23 IU/L (14-36); BUN Creatinine Ratio 18.2 (6-22); Bilirubin Total 1.1 mg/dL (0.2-1.3); Blood Urea Nitrogen 12 mg/dL (7-17); Calcium 9.4 mg/dL (8.4-10.2); Carbon Dioxide 22 mmol/L (22-32); Chloride 109 mmol/L (98-107); Cholesterol 174 mg/dL (140-199); Estimated Glomerular Filt Rate > 60 mL/min (>60); Globulin 3.1 g/dL (1.7-4.1); Glucose 97 mg/dL (70-100); HDL Cholesterol 52 mg/dL (40-60); HEMOLYSIS < 15 (0-50); LDL Cholesterol Calculated 106 mg/dL (<100); Potassium 4.3 mmol/L (3.4-5.1); Sodium 138 mmol/L (137-145); Total Protein 7.2 g/dL (6.3-8.2); Triglycerides 82 mg/dL (35-150)
[2023-07-06 10:54] LABS: TSH w/ Reflex to FT4 0.63 uIU/mL (0.47-4.68)
[2023-07-06 16:57] LABS: Hemoglobin A1C% w Est Avg Glu 5.5 % (4.0-6.0)
== END ==
PROVIDERS: Referring Provider Physician Assistant; Visit Provider Physician Assistant
DX: Z00.00 Encounter for general adult medical examination without abnormal findings (principal); Z83.3 Family history of diabetes mellitus
CPT/HCPCS: 36415; 80053; 80061; 83036; 84443; 85025